=== PATIENT | female | born 1985 | race Caucasian/White ===

== ENCOUNTER → 2016-09-21 | Outpatient (CLI) | payer BC ==
[~2016-09-21] MED LIST: PRENTAB26 PO
== END | disposition home or self-care (01) ==
LOC: C.PAPS 10:48
PROVIDERS: ATTEND Obstetrics & Gynecology
DX: Z01.419 Encounter for gynecological examination (general) (routine) without abnormal findings (principal)

== ENCOUNTER → 2016-10-15 | Outpatient (CLI) | payer BC ==
[2016-10-15 16:13] LABS: URINE APPEARANCE CLEAR (CLEAR); URINE BILIRUBIN NEG (NEG); URINE COLOR YELLOW; URINE NITRITE NEG (NEG); URINE SPECIFIC GRAVITY 1.027 (1.000-1.030); UROBILINOGEN NEG (NEG)
[2016-10-15 16:29] LABS: MANUAL MICROSCOPIC REQUIRED? NO; REVIEW REQ? NO
== END | disposition home or self-care (01) ==
LOC: C.LABSPEC 15:53
PROVIDERS: ATTEND Obstetrics & Gynecology
DX: O34.219 Maternal care for unspecified type scar from previous cesarean delivery (principal); Z3A.00 Weeks of gestation of pregnancy not specified

== ENCOUNTER → 2016-10-20 | Outpatient (CLI) | payer BC ==
[2016-10-23 00:57] LABS: CHLAMYDIA TRACH RNA*** NOT DETECTED (NOT DETECTED); GC (NEIS GONORRHOEAE)RNA** NOT DETECTED (NOT DETECTED)
== END | disposition home or self-care (01) ==
LOC: C.LABSPEC 17:28
PROVIDERS: ATTEND Obstetrics & Gynecology
DX: O34.219 Maternal care for unspecified type scar from previous cesarean delivery (principal)

== ENCOUNTER → 2016-10-20 | Outpatient (CLI) | payer BC ==
[2016-10-20 16:37] LABS: BASO % 0.2 %; BASO ABS # 0.02 K/uL (0-0.2); COMPLETE YES; EOS % 1.4 %; HEMATOCRIT 37.6 % (37-47); IG% 0.1 %; LYMPH % 16.5 %; LYMPH ABS # 1.38 K/uL (1.2-3.4); MEAN CELL VOLUME 83.2 fL (80-100); MEAN CORPUSCULAR HEMOGLOBIN 28.5 pg (25-34); MEAN CORPUSCULAR HGB CONC 34.3 g/dl (32-36); MEAN PLATELET VOLUME 10.3 fL (7.4-10.4); MONO % 8.7 %; NEUT % 73.1 %; PLATELET COUNT 294 K/uL (130-400); RED BLOOD COUNT 4.52 M/uL (4.2-5.4); WHITE BLOOD COUNT 8.37 K/uL (4.8-10.8)
== END | disposition home or self-care (01) ==
LOC: C.LAB1850 15:11
PROVIDERS: ATTEND Obstetrics & Gynecology
DX: O34.219 Maternal care for unspecified type scar from previous cesarean delivery (principal)

== ENCOUNTER → 2016-12-17 | Outpatient (CLI) | payer BC ==
[2016-12-17 16:37] LABS: GTGD 50 Grams
== END | disposition home or self-care (01) ==
LOC: C.LAB1850 14:43
PROVIDERS: ATTEND Obstetrics & Gynecology
DX: O34.219 Maternal care for unspecified type scar from previous cesarean delivery (principal)

== ENCOUNTER → 2016-12-27 | Outpatient (CLI) | payer BC | END | disposition home or self-care (01) | LOC: C.LAB1850 07:03 | PROVIDERS: ATTEND Obstetrics & Gynecology | DX: O28.9 Unspecified abnormal findings on antenatal screening of mother (principal) ==

== ENCOUNTER → 2017-03-11 | Outpatient (CLI) | payer BC ==
[2017-03-11 09:45] LABS: HEMATOCRIT 32.5 % (37-47)
[2017-03-11 11:06] LABS: URINE APPEARANCE CLEAR (CLEAR); URINE BILIRUBIN NEG (NEG); URINE COLOR YELLOW; URINE EPITHELIAL CELL AUTO >30 /lpf (0-5); URINE NITRITE NEG (NEG); URINE SPECIFIC GRAVITY 1.027 (1.000-1.030); UROBILINOGEN NEG (NEG)
[2017-03-11 11:09] LABS: MANUAL MICROSCOPIC REQUIRED? NO; REVIEW REQ? NO
== END | disposition home or self-care (01) ==
LOC: C.LAB1850 07:06
PROVIDERS: ATTEND Obstetrics & Gynecology
DX: Z34.82 Encounter for supervision of other normal pregnancy, second trimester (principal)

== ENCOUNTER → 2017-05-13 | Outpatient (CLI) | payer BC | END | disposition home or self-care (01) | LOC: C.LABSPEC 17:49 | PROVIDERS: ATTEND Obstetrics & Gynecology | DX: Z34.83 Encounter for supervision of other normal pregnancy, third trimester (principal) ==

== ENCOUNTER 2017-06-01 03:54 | Inpatient (IN) | payer BC ==
[~2017-06-01] VITALS: Ht 175.3 cm; Wt 81.7 kg
[2017-06-01] MEDS ORDERED: FERR1TAB39 (04:37)
[2017-06-01 04:38] VITALS: Ht 175.3 cm; Wt 81.7 kg
[2017-06-01] MEDS ORDERED: LACTATED RINGER'S 1000ML 1,000 ML IV PRN (06:10)
[2017-06-01] MEDS ORDERED: LACTATED RINGER'S 1000ML 1,000 ML IV SCH ×2 (06:10→15:46)
[2017-06-01 06:36] LABS: HEMATOCRIT 36.7 % (37-47); MEAN CELL VOLUME 83.6 fL (80-100); MEAN CORPUSCULAR HEMOGLOBIN 28.9 pg (25-34); MEAN CORPUSCULAR HGB CONC 34.6 g/dl (32-36); MEAN PLATELET VOLUME 10.4 fL (7.4-10.4); PLATELET COUNT 167 K/uL (130-400); RED BLOOD COUNT 4.39 M/uL (4.2-5.4); WHITE BLOOD COUNT 7.27 K/uL (4.8-10.8)
[2017-06-01] MEDS ORDERED: EpHEDrine SULFATE INJ 50 MG/ML AMP ONE (07:48)
[2017-06-01] MEDS ORDERED: BUPIVACAINE 0.25% 30 ML VIAL ONE (07:48)
[2017-06-01] MEDS ORDERED: FENTANYL 2MCG/ML ROPIV 1.25MG/ML 100ML BAG EPI ONE ×2 (07:48→15:24)
[2017-06-01] MEDS ORDERED: FENTANYL CITRATE INJ 50 MCG/1 ML 2 ML VIAL ONE (07:49)
[2017-06-01] MEDS ORDERED: LACTATED RINGER'S 1000ML 500 ML IV PRN (09:24)
[2017-06-01] MEDS ORDERED: NALOXONE HCL INJ 1 MG in SODIUM CHLORIDE 0.9% 1000ML 1,000 ML IV PRN (09:24)
[2017-06-01] MEDS ORDERED: EpHEDrine SULFATE INJ 50 MG/ML AMP IV PRN (09:30)
[2017-06-01] MEDS ORDERED: NALBUPHINE HCL INJ 10 MG/ML AMP IV PRN (09:30)
[2017-06-01] MEDS ORDERED: NALOXONE HCL INJ 0.4 MG/1 ML VIAL/CARP IV PRN (09:30)
[2017-06-01] MEDS ORDERED: FENTANYL 2MCG/ML ROPIV 1.25MG/ML 100ML BAG EPI PRN (09:30)
[2017-06-01] MEDS ORDERED: ONDANSETRON INJ 2 MG/ML 2 ML VIAL IV PRN (09:30)
[2017-06-01] MEDS ORDERED: DiphenhydrAMINE HCL 50 MG/ML VIAL IV PRN (09:30)
[2017-06-01] MEDS ORDERED: OXYTOCIN 30 UNITS/500ML NSS IV ONE (11:19)
[2017-06-01] MEDS ORDERED: LANOLIN OINT EXT PRN ×2 (16:00)
[2017-06-01] MEDS ORDERED: DIPHTHERIA/TETANUS/PERTUSSIS 0.5 ML SYR/VIAL IM. ONE (16:00)
[2017-06-01] MEDS ORDERED: ACETAMINOPHEN 325 MG TAB PO PRN (16:00)
[2017-06-01] MEDS ORDERED: OXYTOCIN 30 UNITS/500ML NSS IV PRN (16:00)
[2017-06-01] MEDS ORDERED: SUPERCREAM 0.870 % 15GM JAR EXT PRN (16:00)
[2017-06-01] MEDS ORDERED: BENZOCAINE 20% AER SPR 82.5 GM CAN EXT PRN (16:00)
[2017-06-01] MEDS ORDERED: HYDROCORTISONE ACETATE 25 MG SUPP PR PRN (16:00)
--- NOTE | 2017-06-01 16:14 | DELIVERY SUMMARY ---
DATE OF OPERATION: 06/01/2017 VAGINAL DELIVERY NOTE DATE OF DELIVERY: 06/01/2017. PREOPERATIVE DIAGNOSES: 1. Recinos intrauterine at 39 and 4. 2. Onset of labor. 3. History of section. 4. Desires vaginal after . 5. Group B strep negative. POSTOPERATIVE DIAGNOSIS: Same. PROCEDURE: Spontaneous vaginal delivery. SURGEON: Dr. Trammell. ASSIST: None. ESTIMATED BLOOD LOSS: 500. COMPLICATIONS: None. DISPOSITION: Stable in labor and delivery. DESCRIPTION: Bryanna is a 31-year-old G2, P1 who had prior for breech. She presented with recinos in vertex position and desired to trial of labor after . She was managed initially by my partner Dr. Patterson. I took over care of the patient on 06/01/2017. The patient was managed with an epidural for pain management and progressed with spontaneous labor to the point where she was completely dilated with an urge to push. She was coached through pushing by her nurse and as the patient reached I was called and prepped for delivery. Of note, the patient was pushing with the head in the direct occiput posterior position with the anterior fontanel palpable within the portion of the head and the forehead also visibly presenting during pushing. The patient pushed well and brought the head to delivery in the direct occiput posterior position with as expected an extended neck. The restituted and then delivered easily the remainder of the way. The was placed on the maternal abdomen. The cord was doubly clamped and cut by the father of the baby. The placenta delivered spontaneously and was intact with a 3-vessel cord. There was found to be a second degree laceration which was extensive stretching down the midline of the perineum to but not through the anal verge and following circumferentially around the right side of the anus making almost a question shelli shape. However on exam I am confident that the anal sphincter itself was not disturbed and multiple rectal exams demonstrated no defect in the rectal mucosa. This was therefore repaired in the usual manner for a second degree with 2-0 Vicryl being used to close the vaginal mucosa in a running locked fashion and then crown sutures being used to rebuild the perineal body. 3-0 Vicryl was then used to close the skin in a subcuticular manner creating excellent cosmesis and hemostasis. At the completion of repair the fundus was firm, lochia was minimal and mother and were in stable condition having tolerated their delivery well. I attest to the content of the Intraoperative Record and any orders documented therein. Any exception s are noted below.
--- NOTE | 2017-06-01 16:31 | Anesthesia Procedure Note ---
Anesthesia Epidural Removal Nt Date & Time Jun 01, 2017 at 16:31 Vital Signs Pain Intensity: 10.0 Notes Mental Status: alert / awake / arousable, participated in evaluation Nausea / Vomiting: adequately controlled Pain: adequately controlled Airway Patency, RR, SpO2: stable & adequate BP & HR: stable & adequate Hydration State: stable & adequate Neuraxial Anesthesia: was administered Anesthetic Complications: no major complications apparent, pt satisfied with anesthetic care Epidural: removed without complications, with tip intact
[2017-06-01] MEDS: IBUPROFEN 600 MG TAB PO PRN ×2 (16:55→21:29)
[2017-06-01] MEDS: DOCUSATE SODIUM 100 MG CAP PO SCH (20:06)
[2017-06-01 20:15] VITALS: BP 123/80; PULSE 93; TEMP 36.6; O2SAT 100
[2017-06-01] MEDS: OXYCODONE/ACETAMINOPHEN 5-325 TAB PO PRN (21:29)
[2017-06-02 00:30] VITALS: BP 101/65; PULSE 72; TEMP 36.6
[2017-06-02 03:45] VITALS: BP 102/66; PULSE 72; TEMP 36.5
--- NOTE | 2017-06-02 07:08 | Progress Note ---
Subjective Jun 02, 2017. Subjective conversation w/ patient, physical exam Ambulation: ambulating normally Voiding: no voiding problems Passing Gas: Yes Diet Tolerance: Regular Diet Lochia: Moderate Feeding Type: Breast Feeding Review of Systems Constitutional: No fever, No chills Respiratory: No cough Cardiac: No chest pain Breast: No problem reported Abdomen: No nausea, No vomiting Female : No problem reported Objective Vital Signs Date Time Temp Pulse Resp B/P (MAP) Pulse Ox O2 Delivery O2 Flow Rate FiO2 06/02/17 03:45 36.5 72 18 102/66 (78) Room Air 06/02/17 00:30 36.6 72 18 101/65 (77) Room Air 06/02/17 00:30 Room Air 06/01/17 20:15 36.6 93 16 123/80 (94) 100 Room Air 06/01/17 20:15 Room Air Physical Exam General Appearance: WELL-APPEARING, NO APPARENT DISTRESS Respiratory/Chest: no respiratory distress, no accessory muscle use Cardiovascular: no edema Abdomen: non tender, soft Fundus: Firm Extremities: no calf tenderness Laboratory Results Last 24 Hours Test 06/02/17 06:37 Assessment and Plan Post- Day#: 1 Continue Routine Care: Routine post care.
[2017-06-02 07:12] VITALS: BP 105/69; PULSE 89; TEMP 36.5; O2SAT 100
--- NOTE | 2017-06-02 07:16 | Discharge Instructions ---
Discharge Instructions Date of Service Jun 02, 2017. Admission Reason for Admission: LABOR Discharge Discharge Diagnosis / Problem: vaginal delivery Discharge Goals Goal(s): Routine recovery after delivery Activity Recommendations Activity Limitations: per Instructions/Follow-up section . Instructions / Follow-Up Instructions / Follow-Up ACTIVITY RECOMMENDATIONS: * Gradual return to full activity over the next 2-3 weeks. * No lifting - nothing heavier than baby over the next 2-3 weeks. * Do not engage in vigorous exercise, sexual activity or sports until cleared by your physician. * Do not drive or operate any motorized equipment until cleared by your physician. * You may shower/bathe daily. MEDICATIONS: For discomfort or pain, you may use Acetaminophen (Tylenol), Ibuprofen (Advil), or Naproxen (Aleve) following the package directions. For constipation you may use Colace following the package directions. BREAST CARE: If you are not breast feeding: * Wear a supportive bra 24 hours a day for one to two weeks. * Avoid stimulating your breasts and nipples as much as possible during the first few weeks after delivery. * When taking a shower, have the warm water hit your back, not breasts. * When your breasts feel full, apply ice packs. Usually three to four times a day helps ease the discomfort. * Take a mild pain medication (Tylenol / Motrin) when you are uncomfortable. If breast feeding: * Use breast milk to lubricate nipples. Lansinoh cream may be used for sore nipples. You do not need to remove cream prior to breast feeding. If using a different brand of cream, check the label for directions regarding removal of cream prior to nursing. * Wear a supportive bra. * If having problems with breasts or breast feeding, call a information systems consultant or your health care provider. EPISIOTOMY CARE: After delivery, if you have an episiotomy (stitches), the following steps will ease discomfort and aid healing. * For the first 24 hours after delivery, place ice packs next to your episiotomy to help reduce swelling. * After the first 24 hour-period, sitz baths, either portable or in the tub, are suggested. A shower with a shower arm sprayed over the episiotomy may be comforting. * Dacia care should be done after each voiding and bowel movement. Squirt warm water from a plastic bottle over the perineum (region of the body between the anus and urinary opening) and pat dry. * Use Dermoplast to ease discomfort. Shake container. [place] directly over the episiotomy. Place a Tucks on a clean sanitary pad next to your episiotomy. SPECIAL CARE INSTRUCTIONS: When you are discharged from the hospital, it is important for you to follow the instructions listed below: * During the first week at home, you should be able to care for yourself and your baby. In addition, the usual light household activities are encouraged. * Limit your activities to the way you feel. Do not try to clean the house or move furniture. Be sensible. * If you actively engage in sports and have done so up until the time of your delivery, you may resume these activities as soon as you feel able. This may take up to one month or even longer. Use good judgment. * Continue to take your vitamins for at least six weeks after the of your baby. * Your diet need not be limited unless you were on a special diet before your delivery. Breast-feeding mothers need around 2500 calories per day and at least 64-80 ounces of fluid per day (8 to 10 glasses). * You should eat foods from the four major food groups. Crash diets or fad diets are to be avoided. Eating lean meats, fresh fruits and vegetables, low-fat dairy products, high fiber foods and a regular exercise program, will help you get back to your pre- weight without putting your health at risk. * Constipation is sometimes a problem after delivery. Take a mild laxative as needed. If breast feeding, Milk of Magnesia is acceptable to use. You may use a suppository or Fleets enema if no episiotomy. * A daily shower or tub bath is suggested. Be sure to thoroughly and gently dry the perineum. * A bloody vaginal discharge will usually continue until around four weeks post . A small amount of bleeding may continue for as long as six weeks. Vaginal discharge changes from the bright red bleeding after delivery to pink then brownish and finally yellowish-pink before becoming white and disappearing. * Bleeding may increase with activity. Your first period may come in 4-8 weeks. If you are breast feeding, your period may be delayed even longer. * [place] (sex) can begin whenever both you and your partner feel comfortable and do not have any form of genital infection. It is recommended that you wait at least six weeks for internal and external healing to occur. If you have questions, please talk to your health care practitioner. A condom should be used to prevent infection and . * Foreplay, gentle intercourse and lubrication is very important the first several times to prevent pain. A water-based lubricant such as K-Y jelly or Astroglide may be used. * If you have RH negative blood and your baby is RH positive, you will receive RHOGAM by injection prior to discharge. The nurse will give you a card to keep with you that has the date and place that you received RHOGAM after delivery. * During your care, you had a Rubella screen done to check for the presence of rubella antibodies in your blood. If your test was negative, you will receive a Rubella vaccine prior to discharge. This vaccine may cause a fever, soreness at the injection site and flu-like symptoms. If these symptoms persist, notify your health care practitioner. is not advised for one month after a Rubella vaccine. * Verbalizes understanding of car seat law as reviewed with patient nursing. * Car Seat hand-out given and reviewed with patient by nursing. * Shaken baby information reviewed with patient by nursing. Call you doctor if: * Heavy bleeding (saturating several pads an hour) or passing clots the size of your fist. * A fever >101 degrees F (38.3 degrees C) on two occasions four hours apart and /or chills. * Unusual pain in the pelvic or vaginal areas. * "Baby Blues" lasting longer than two weeks. If you have any questions or concerns, call your health care practitioner at . FOLLOW UP VISIT: * Please call the office at to schedule a 6 week examination. It is important you keep this appointment. It is important for you to make arrangements for either yearly or twice yearly check-ups thereafter. Current Hospital Diet Patient's current hospital diet: Regular OB Diet Discharge Diet Recommended Diet: Regular Diet Pending Studies Studies pending at discharge: no Medical Emergencies . Who to Call and When: Medical Emergencies: If at any time you feel your situation is an emergency, please call 911 immediately. . Non-Emergent Contact Non-Emergency issues call your: Primary Care Provider . . "Provider Documentation" section prepared by Marcela Trammell. . VTE Core Measure Inpt VTE Proph given/why not?: Treatment not indicated
[2017-06-02] MEDS: DOCUSATE SODIUM 100 MG CAP PO SCH ×2 (07:27→19:34)
[2017-06-02] MEDS: FERROUS SULFATE 325 MG TAB PO SCH (07:28)
[2017-06-02] MEDS: PRENATAL VITAMIN TAB PO SCH (07:28)
[2017-06-02 07:33] LABS: HEMATOCRIT 28.1 % (37-47)
[2017-06-02 12:00] VITALS: BP 112/62; PULSE 88; TEMP 36.6
[2017-06-02] MEDS: IBUPROFEN 600 MG TAB PO PRN ×2 (13:38→19:28)
[2017-06-02] MEDS: OXYCODONE/ACETAMINOPHEN 5-325 TAB PO PRN ×2 (13:39→19:28)
[2017-06-02 15:30] VITALS: BP 95/58; PULSE 82; TEMP 36.6
[2017-06-02] MEDS ORDERED: MAGNESIUM HYDROXIDE SUSP 30 ML UDC PO PRN (19:30)
[2017-06-02] MEDS ORDERED: SENNA 8.6 MG TAB PO PRN (19:30)
[2017-06-02] MEDS ORDERED: BISACODYL 5 MG TABEC ONE (19:31)
[2017-06-02] MEDS ORDERED: DOCUSATE SODIUM 100 MG CAP PO SCH (20:00)
[2017-06-03 00:15] VITALS: BP 105/68; PULSE 76; TEMP 36.9; O2SAT 97
--- NOTE | 2017-06-03 07:22 | Progress Note ---
Subjective Jun 03, 2017. Subjective conversation w/ patient, physical exam Ambulation: ambulating normally Voiding: no voiding problems Objective Vital Signs Date Time Temp Pulse Resp B/P (MAP) Pulse Ox O2 Delivery O2 Flow Rate FiO2 06/03/17 00:15 Room Air 06/03/17 00:15 36.9 76 16 105/68 (80) 97 Room Air 06/02/17 15:30 36.6 82 20 95/58 (70) Room Air 06/02/17 15:30 Room Air 06/02/17 12:00 36.6 88 20 112/62 (79) 06/02/17 07:45 Room Air Physical Exam General Appearance: WELL-APPEARING, NO APPARENT DISTRESS Fundus: Firm, Non-Tender Extremities: no calf tenderness Assessment and Plan Post- Day#: 2 Continue Routine Care: - instructions given - f/u in 6 weeks
[2017-06-03 08:30] VITALS: BP 128/76; PULSE 95; TEMP 37.2; O2SAT 100
[2017-06-03] MEDS: DOCUSATE SODIUM 100 MG CAP PO SCH (09:08)
[2017-06-03] MEDS: FERROUS SULFATE 325 MG TAB PO SCH (09:08)
[2017-06-03] MEDS: PRENATAL VITAMIN TAB PO SCH (09:08)
[2017-06-03 15:30] VITALS: BP 113/72; PULSE 87; TEMP 37
[2017-06-03] MEDS: IBUPROFEN 600 MG TAB PO PRN (16:35)
[2017-06-03 18:51] VITALS: BP_DIAS 72; PULSE 87; TEMP 37
[2017-06-03] MEDS ORDERED: BISACODYL 5 MG TABEC PO SCH (20:00)
== END 2017-06-03 19:16 | disposition home or self-care (01) | DRG 775 ==
LOC: C.LD 03:54 → C.OPB 03:54 → C.LD 06:12 → C.OPB 06:12 → C.OBG 19:19 → EDSTATUS 06-04 03:54
PROVIDERS: ADMIT Obstetrics & Gynecology; ATTEND Obstetrics & Gynecology
PROC: 0KQM0ZZ Repair Perineum Muscle, Open Approach (ICD-10-PCS; principal; 2017-06-01)
PROC: 10E0XZZ Delivery of Products of Conception, External Approach (ICD-10-PCS; principal; 2017-06-01)
DX: O34.211 Maternal care for low transverse scar from previous cesarean delivery (principal); O70.1 Second degree perineal laceration during delivery; Z3A.39 39 weeks gestation of pregnancy; Z37.0 Single live birth

== ENCOUNTER → 2017-06-10 | Outpatient (CLI) | payer BC ==
[~2017-06-10] MED LIST changes: +FERR1TAB39
== END | disposition home or self-care (01) ==
LOC: C.LAB1850 13:53
PROVIDERS: ATTEND Obstetrics & Gynecology
DX: R30.0 Dysuria (principal)

== ENCOUNTER 2019-04-04 20:33 | Inpatient (IN) ==
[2019-04-04] MEDS ORDERED: OXYTOCIN 30 UNITS/500 ML BAG IV PRN (21:21)
[2019-04-04] MEDS ORDERED: LACTATED RINGER'S 1,000 ML IV PRN (21:21)
[2019-04-04 21:40] LABS: Hematocrit (blood only) 39.7 % (37-47); Hemoglobin 13.7 g/dL (12.0-16.0); Mean Corpuscular Hemoglobin 29.4 pg (25-34); Mean Corpuscular Volume 85.2 fL (80-100); Mean Platelet Volume 10.3 fL (7.4-10.4); Platelet Count 151 K/uL (130-400); RDW Coefficient of Variation 13.3 % (11.5-14.5); RDW Standard Deviation 41.1 fL (36.4-46.3); Red Blood Count 4.66 M/uL (4.2-5.4)
[2019-04-04] MEDS ORDERED: ePHEDrine sulfate 50 MG/ML AMP ONE (21:42)
[2019-04-04] MEDS ORDERED: fentaNYL citrate 100 MCG/2 ML VIAL ONE (21:42)
[2019-04-04] MEDS ORDERED: fentaNYL 2MCG/ML ROPIV 1.25MG/ML 100 ML BAG EPI ONE (21:43)
[2019-04-04] MEDS ORDERED: BUPIVACAINE 0.25% 30 ML VIAL ONE (21:43)
[2019-04-04 22:03] LABS: Mean Corpuscular Hgb Conc 34.5 g/dL (32-36)
--- NOTE | 2019-04-04 22:08 | Anesthesiology Consultation ---
Date of Service April 04, 2019 Assessment & Plan (1) Encounter for pre-operative examination: Chart Review Chart Review: Acceptable Risk for Surgery Consults Requested none ASA ASA2 Proposed Anesthesia Anesthesia Type: Labor Epidural Risk / Benefits Reviewed With: PT / POA / Parent / Guardian, Accepts Plan and Informed Consent Obtained History Height/Weight Height: 5 ft 9 in Weight: 83.915 kg Allergies Allergy/AdvReac Type Severity Reaction Status Date / Time benzonatate Allergy Mild RASH Verified 04/02/19 14:50 doxycycline Allergy Mild GI SYMPTOMS Verified 04/02/19 14:50 Medications Home Medications Medication Instructions Recorded Confirmed Last Taken 1 tab PO DAILY 01/08/19 04/04/19 04/03/19 vitamin,calcium,[id number] acid tablet Active Medications Generic Name Dose Route Start Last Admin Trade Name Freq PRN Reason Stop Dose Admin Lactated Ringer's 1,000 mls @ 125 mls/hr 04/04/19 21:21 04/04/19 21:33 Lr IV 04/06/19 21:20 999 mls/hr .Q8H PRN Administration L&D Protocol Protocol Past Medical History Medical History History of mastitis Exercise / Class Metabolic Activity II 4-5 Yardwork/Stairs/Walk up hill Past Family History Family History Mother Thyroid disorder Aunt Thyroid disorder maternal Other Breast cancer Past Surgical History Surgical History Status post primary low transverse section Past Anesthesia History No Hx of Anesthesia Complications and No Family Hx of Anesthesia Complications History of PONV No Hx of PONV and No Hx of Motion Sickness Social History Smoking Status: Never smoker Hx Alcohol Use: Yes (social) Hx Substance Use: No Physical Exam Vital Signs Last Vital Signs Temp 97.7 F 04/04/19 20:54 Pulse 83 04/04/19 20:55 Resp 20 04/04/19 20:54 BP 124/70 04/04/19 20:55 ENMT Mouth: no dentition abnormality Thyromental Distance: > or= 3.5 Finger Breadths Mallampati Class: II Neck normal visual inspection Respiratory normal respiratory effort Auscultation: lungs clear to auscultation bilaterally Cardiovascular Rate/Rhythm: regular rate and regular rhythm Testing Laboratory Results 04/04/19 21:33
[2019-04-04] MEDS ORDERED: ONDANSETRON INJ 2 MG/ML 2 ML VIAL IV PRN (22:25)
[2019-04-04] MEDS ORDERED: NALOXONE HCL 0.4 MG/1 ML VIAL/CARP IV PRN (22:25)
[2019-04-04] MEDS ORDERED: NALOXONE HCL 1 MG in SODIUM CHLORIDE 0.9% 1000ML 1,000 ML IV PRN (22:25)
[2019-04-04] MEDS ORDERED: DiphenhydrAMINE HCL 50 MG/ML VIAL IV PRN (22:25)
[2019-04-04] MEDS ORDERED: fentaNYL 2MCG/ML ROPIV 1.25MG/ML 100 ML BAG EPI PRN (22:25)
[2019-04-04] MEDS ORDERED: NALBUPHINE HCL INJ 10 MG/ML AMP IV PRN (22:25)
[2019-04-04] MEDS ORDERED: ePHEDrine sulfate 50 MG/ML AMP IV PRN (22:25)
--- NOTE | 2019-04-05 00:08 | Delivery Summary ---
Vaginal Delivery Summary Date of Service April 05, 2019 Vaginal Delivery Summary DIAGNOSES: 1. Recinos intrauterine at 39w4d gestation. 2. Spontaneous onset of labor. 3. Group B Streptococcus Neg. PROCEDURE: and repair of 2nd degree laceration. SURGEON: Marcela Trammell MD. METAL BONDING CRIB ATTENDANT: None. ESTIMATED BLOOD LOSS: 400 mL. COMPLICATIONS: None. PLACENTA: Spontaneous and intact with a 3-vessel cord. DISPOSITION: Stable to labor and delivery. DESCRIPTION: The patient pushed well and brought the head to in OA position. The infant's head was allowed to deliver with contraction force and no further active pushing, with the perineum protected during this time. The shoulders delivered easily with a maternal pushing effort. There was no nuchal cord. The shoulders and body delivered without any difficulty, and the infant was placed on the maternal abdomen. It was vigorous and moving all extremities, and making respiratory efforts. The cord was doubly clamped by the MD and then cut by the FOB. The placenta delivered spontaneously and was noted to be intact and with a 3VC. The cervix, vagina and perineum were examined and were found to have a second degree laceration which was repaired in the usual manner with vicryl suture including a crown stitch to rebuild the perineal body. The fundus was firm and lochia minimal immediately after delivery.
--- NOTE | 2019-04-05 01:26 | Anesthesia Procedure Note ---
Date of Service April 05, 2019 Anesthesia Post Epidural Note Vital Signs Vital Signs: Temp Pulse Resp BP Pulse Ox 98.1 F 83 18 114/67 100 04/04/19 23:05 04/05/19 01:21 04/05/19 01:09 04/05/19 01:21 04/04/19 23:52 Pain Intensity Abdomen: Pain Intensity: 0 Notes Mental Status: alert / awake / arousable and participated in evaluation Nausea / Vomiting: adequately controlled Pain: adequately controlled Airway Patency, RR, SpO2: stable & adequate BP & HR: stable & adequate Hydration State: stable & adequate Neuraxial Anesthesia: was administered and sensory block is resolving Anesthetic Complications: no major complications apparent and Pt Satisfied with anesthetic care Epidural: Removed without complications and With tip intact
[2019-04-05] MEDS ORDERED: OXYTOCIN 30 UNITS/500 ML BAG IV PRN (02:07)
[2019-04-05] MEDS ORDERED: DIPHTHERIA/TETANUS/PERTUSSIS 0.5 ML SYR/VIAL IM ONE (02:07)
[2019-04-05] MEDS ORDERED: BENZOCAINE 20% AER SPR 82.5 GM CAN EXT PRN (02:07)
[2019-04-05] MEDS ORDERED: ACETAMINOPHEN 325 MG TAB PO PRN (02:07)
[2019-04-05] MEDS ORDERED: HYDROCORTISONE ACETATE 25 MG SUPP PR PRN (02:07)
[2019-04-05] MEDS ORDERED: OXYCODONE/ACETAMINOPHEN 5mg/325mg TAB PO PRN (02:07)
[2019-04-05] MEDS ORDERED: LACTATED RINGER'S 1,000 ML IV SCH (02:07)
[2019-04-05] MEDS ORDERED: SUPERCREAM 0.870% 15 GM JAR EXT PRN (02:07)
--- NOTE | 2019-04-05 06:31 | Obstetrical Progress Note ---
Date of Service <Anabell Camarena MD - Last Filed: 04/05/19 08:10> April 05, 2019 Assessment & Plan <Anabell Camarena MD - Last Filed: 04/05/19 08:10> (1) Encounter for care and examination after delivery: 33 yo after PPD0 after with a hx of C/S and prev . Doing well this AM. No complaints. Mild burning with urination, passing gas, no BM. Tolerating oral diet. Mild reg calf cramping but no acute pain or tenderness to palpation. No peripheral swelling. Day #:: 0 Subjective <Anabell Camarena MD - Last Filed: 04/05/19 08:10> Ambulation: ambulating normally Voiding: no voiding problems Passing Gas:: Yes Diet Tolerance:: regular diet Feeding Type:: breast feeding Current Pain Level(1-10): 0 33 yo PPD0 after , hx of C/S and . Constitutional: + fatigue; no fever and no chills Respiratory: no cough and no dyspnea No shortness of breath Cardiovascular: no chest pain, no syncope, no edema and no calf pain Breast: no breast pain Gastrointestinal: + cramping; no abdominal pain, no nausea, no vomiting, no constipation and no diarrhea/loose stools Genitourinary (female): no dysuria and no difficulty urinating Musculoskeletal: + myalgia (muscle cramping in R calf) Neurologic: no headache(s) Physical Exam <Anabell Camarena MD - Last Filed: 04/05/19 08:10> Constitutional well developed and well nourished Respiratory normal respiratory effort; no respiratory distress, no labored breathing and no cough Auscultation: no crackles, no rales, no rhonchi and no wheezes Cardiovascular Rate/Rhythm: regular rate and regular rhythm Heart Sounds: no gallop, no murmur and no cardiac rub Extremities: no pedal edema Gastrointestinal (Abdomen) Inspection/Auscultation: + abdomen distended and normal bowel sounds Percussion/Palpation: + abdomen tender and abdomen soft; no guarding Genitourinary Uterus firm, palpable below umbilicus Results & Data <Anabell Camarena MD - Last Filed: 04/05/19 08:10> Vital Signs (Past 12 Hours) Vital Signs Temp Pulse Resp BP Pulse Ox 04/05/19 02:05 36.4 C L 88 18 118/66 04/05/19 01:51 75 111/60 04/05/19 01:36 83 118/68 04/05/19 01:35 18 04/05/19 01:21 83 114/67 04/05/19 01:09 18 04/05/19 01:06 85 129/68 04/05/19 00:51 91 H 119/79 04/05/19 00:50 18 04/05/19 00:36 96 H 134/74 04/05/19 00:35 18 04/05/19 00:20 93 H 18 127/73 04/05/19 00:05 100 H 18 121/64 04/05/19 00:01 83 120/63 04/04/19 23:52 97 H 100 04/04/19 23:47 93 H 100 04/04/19 23:45 84 90 04/04/19 23:42 94 H 100 04/04/19 23:37 68 92/56 L 97 04/04/19 23:32 83 99 04/04/19 23:31 18 04/04/19 23:27 87 97 04/04/19 23:22 86 99 04/04/19 23:21 75 84/52 L 04/04/19 23:17 76 99 04/04/19 23:12 87 99 04/04/19 23:07 99 H 98 04/04/19 23:05 36.7 C 20 04/04/19 23:03 90 94/54 L 04/04/19 23:02 92 H 98 04/04/19 22:58 91 H 99/56 L 04/04/19 22:57 97 H 98 04/04/19 22:53 93 H 107/60 04/04/19 22:52 90 97 04/04/19 22:49 92 H 99/57 L 04/04/19 22:47 91 H 97 04/04/19 22:43 100 H 102/55 L 04/04/19 22:42 99 H 96 04/04/19 22:38 83 105/57 L 04/04/19 22:37 98 H 97 04/04/19 22:32 89 94/54 L 97 04/04/19 22:30 96 H 18 96/56 L 04/04/19 22:28 97 H 98/55 L 04/04/19 22:27 87 97 04/04/19 22:26 97 H 100/57 L 04/04/19 22:24 96 H 110/63 04/04/19 22:23 78 18 112/71 04/04/19 22:22 86 99 04/04/19 22:17 81 100 04/04/19 22:12 100 H 97 04/04/19 22:11 95 H 94 04/04/19 22:07 90 95 04/04/19 20:55 83 124/70 04/04/19 20:54 36.5 C 83 20 124/70 <Jenni Parikh MD, FACOG - Last Filed: 04/05/19 08:36> Co-Signing Physician Notes Resident Physician Supervision Note: I was present with Dr. Camarena during the history and exam. I discussed the case with the resident and agree with the findings and plan as documented in the note. Any exceptions or clarifications are listed here: doing well, no complaints, routine care. Documented By: Jenni Parikh MD, FACOG
[2019-04-05] MEDS: PRENATAL VITAMIN 1 TAB PO SCH (08:58)
[2019-04-05] MEDS: IBUPROFEN 600 MG TAB PO PRN (08:58)
[2019-04-05] MEDS: DOCUSATE SODIUM 100 MG CAP PO SCH ×2 (08:58→22:12)
[2019-04-06] MEDS: IBUPROFEN 600 MG TAB PO PRN ×2 (00:22→08:38)
[2019-04-06 06:54] LABS: Hematocrit (blood only) 33.8 % (37-47); Hemoglobin 11.8 g/dL (12.0-16.0); Mean Corpuscular Hemoglobin 29.5 pg (25-34); Mean Corpuscular Hgb Conc 34.9 g/dL (32-36); Mean Corpuscular Volume 84.5 fL (80-100); Mean Platelet Volume 10.1 fL (7.4-10.4); Platelet Count 167 K/uL (130-400); RDW Coefficient of Variation 13.2 % (11.5-14.5); RDW Standard Deviation 40.3 fL (36.4-46.3); White Blood Count 7.64 K/uL (4.8-10.8)
--- NOTE | 2019-04-06 07:20 | Obstetrical Progress Note ---
Date of Service April 06, 2019 Assessment & Plan (1) Encounter for care and examination after delivery: 33 yo after PPD0 after with a hx of C/S and prev . Doing well this AM. No complaints. Mild burning with urination, passing gas, no BM. Tolerating oral diet. Previous calf cramping has subsided. No peripheral swelling. D/C home today. Subjective Ambulation: ambulating normally Voiding: no voiding problems Passing Gas:: Yes Diet Tolerance:: regular diet Lochia:: Small Feeding Type:: breast feeding Current Pain Level(1-10): 0 Constitutional: no fever, no chills and no fatigue Gastrointestinal: no abdominal pain, no nausea, no vomiting, no cramping, no constipation and no diarrhea/loose stools Physical Exam Constitutional well developed and well nourished Respiratory normal respiratory effort; no respiratory distress, no labored breathing and no cough Auscultation: no crackles, no rales, no rhonchi and no wheezes Cardiovascular Rate/Rhythm: regular rate and regular rhythm Heart Sounds: no gallop, no murmur and no cardiac rub Extremities: no pedal edema Gastrointestinal (Abdomen) Inspection/Auscultation: + abdomen distended and normal bowel sounds Percussion/Palpation: abdomen soft; abdomen nontender and no guarding Musculoskeletal No pain or tenderness to palpation of calves. Genitourinary uterus firm and nontender to palpation at 2 fingerbreadths below umbilicus. Results & Data Vital Signs (Past 12 Hours) Vital Signs Temp Pulse Resp BP Pulse Ox 04/06/19 00:15 36.9 C 84 18 112/78 97 04/05/19 21:00 36.7 C 82 18 100/65 96 Resident Activity Tracking Resident Involvement: Resident Care Provided Care Provided: OB Delivery
[2019-04-06] MEDS: DOCUSATE SODIUM 100 MG CAP PO SCH (08:38)
[2019-04-06] MEDS: PRENATAL VITAMIN 1 TAB PO SCH (08:38)
== END 2019-04-06 13:46 | disposition home or self-care (01) | DRG 807 ==
LOC: OPB 20:33 → 4S1 20:35 → 4S2 04-05 02:25